=== PATIENT | female | born 1960 | race African-American/Black ===

== ENCOUNTER 2019-08-20 13:59 | Emergency (ER) | payer OTHER ==
[2019-08-20 14:10] VITALS: BP 139/65; PULSE 89; TEMP 98.4; BMI 25.8
--- NOTE | 2019-08-20 14:42 | PDOC ---
History of Present Illness - General Chief Complaint: RX Refill Stated Complaint: MEDS REFILL/NOT ABLE TO GET BP MEDS Time Seen by Provider: 08/20/19 14:39 History Source: Patient Exam Limitations: No Limitations (pt is here for BP med, took last pills this morning. no compliants. ) Past History - Travel Traveled outside of the country in the last 30 days: No Close contact w/someone who was outside of country & ill: No - Past Medical History Allergies/Adverse Reactions: Allergies Allergy/AdvReac Type Severity Reaction Status Date / Time Penicillins Allergy Nausea Verified 08/30/16 17:46 Home Medications: Ambulatory Orders Amlodipine Besylate [Norvasc -] 5 mg PO DAILY #30 tablet 08/20/19 COPD: No HTN: Yes - Immunization History Immunization Up to Date: No - Psycho Social/Smoking Cessation Hx Smoking History: Never smoked Have you smoked in the past 12 months: No Information on smoking cessation initiated: No Hx Alcohol Use: No Drug/Substance Use Hx: No Substance Use Type: None Review of Systems - Review of Systems Constitutional: No: Chills, Fever Cardiac (ROS): No: Chest Pain, Palpitations Neurological: No: Headache, Numbness, Dizziness *Physical Exam - Vital Signs Last Vital Signs Temp Pulse Resp BP Pulse Ox 98.4 F 89 18 139/65 99 08/20/19 14:07 08/20/19 14:07 08/20/19 14:07 08/20/19 14:07 08/20/19 14:07 - Physical Exam General Appearance: Yes: Nourished Respiratory/Chest: positive: Lungs Clear, Normal Breath Sounds Cardiovascular: positive: Regular Rhythm, Regular Rate, S1, S2 Neurologic: positive: 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, Fully Oriented, Alert, Normal Mood/ Affect, Normal Response, Motor Strength 5/5 Medical Decision Making - Medical Decision Making 08/20/19 16:11 59y/o F with h/o HTN, for med refills no complaints vss Rx for norvasc sent to pharmacy Discharge - Discharge Information Problems reviewed: Yes Clinical Impression/Diagnosis: HTN (hypertension) with goal to be determined, Medication refill Condition: Stable Disposition: HOME - Admission No - Additional Discharge Information Prescriptions: Amlodipine Besylate [Norvasc -] 5 mg PO DAILY #30 tablet - Follow up/Referral Referrals: Omar Messina MD [Primary Care Provider] - - Patient Discharge Instructions Additional Instructions: Please follow up your PCP for subsequent medication refills - Post Discharge Activity
== END 2019-08-20 14:51 | disposition home or self-care (01) ==
LOC: JERFT 13:59
DX: I10 Essential (primary) hypertension (principal); Z76.0 Encounter for issue of repeat prescription
CPT/HCPCS: 99281-25